=== PATIENT | male | born 1970 | race Caucasian/White ===

== ENCOUNTER 2024-09-17 15:44 | Inpatient (IN) | payer MEDICARE, OTHER ==
[~2024-09-17] VITALS: Ht 177.8 cm; Wt 40.8 kg
[2024-09-17 16:11] LABS: BASOPHILS ABSOLUTE AUTO 0.03 K/mm3 (0.00-0.23); BASOPHILS PERCENT AUTO 0 % (0-2); EOSINOPHILS ABSOLUTE AUTO 0.08 K/mm3 (0.00-0.68); EOSINOPHILS PERCENT AUTO 1 % (0-6); Hematocrit 44.6 % (37.0-53.0); Hemoglobin 14.7 g/dL (13.5-17.5); IMMATURE GRAN ABSOLUTE AUTO 0.01 K/mm3 (0.00-0.10); IMMATURE GRAN PERCENT AUTO 0 % (0-1); LYMPHOCYTES ABSOLUTE AUTO 2.43 K/mm3 (0.84-5.20); LYMPHOCYTES PERCENT AUTO 34 % (21-46); MONOCYTES PERCENT AUTO 7 % (4-13); Mean Corpuscular HGB 31.4 pg (26.0-34.0); Mean Corpuscular Volume 95 fL (80-100); Mean Platelet Volume 10.8 fL (9.1-12.4); NEUTROPHILS ABSOLUTE AUTO 4.21 K/mm3 (1.96-9.15); NEUTROPHILS PERCENT AUTO 58 % (41-73); Platelet Count 320 K/mm3 (150-400); RDW Coefficient Variation 13.6 % (11.7-14.2); RDW Standard Deviation 47.8 fL (35.1-46.3); Red Blood Cell Count 4.68 M/mm3 (4.30-5.90); White Blood Cell Count 7.26 K/mm3 (4.00-11.30)
[2024-09-17 16:32] LABS: Alanine Aminotransfer (ALT/SGP 35 U/L (12-78); Albumin, Blood 3.8 g/dL (3.4-5.0); Albumin/Globulin Ratio 1.2 (0.8-1.8); Alk Phos 82 U/L (50-136); Anion Gap 9 mmol/L (3-11); Aspartate Aminotrans (AST/SGOT 35 U/L (12-37); Bilirubin, Total 0.4 mg/dL (0.1-1.0); Blood Urea Nitrogen 14 mg/dL (8-24); Bun/Creatinine Ratio 13.7 (12.0-20.0); CO2, Blood 27 mmol/L (21-32); Calcium, Blood 9.4 mg/dL (8.5-10.1); Chloride, Blood 110 mmol/L (98-108); Creatinine, Blood 1.02 mg/dL (0.60-1.20); Ethanol (Alcohol), Blood, Med <3 mg/dL; Globulin, Blood 3.2 g/dL (2.2-4.0); Glomerular Filtration Rate 87 (60-); Glucose, Blood 95 mg/dL (70-99); Sodium, Blood 142 mmol/L (136-145)
[2024-09-17 17:23] LABS: U Amphetamine Screen Not Detected; U Barbituate Screen DETECTED; U Benzodiazapine Screen Not Detected; U Cocaine Screen Not Detected; U Methadone Screen Not Detected; U Methamphetamine Screen Not Detected; U Opiates Screen DETECTED
[2024-09-17 17:24] LABS: U Buprenorphine Screen Not Detected; U Cannabinoids Screen DETECTED; U Oxycodone Screen Not Detected; U Phencyclidine Screen Not Detected
[2024-09-17] MEDS ORDERED: Neurontin800 MG PO (19:29)
[2024-09-17] MEDS ORDERED: LISINOPRIL-HCT1 EACH PO (19:30)
[2024-09-17] MEDS ORDERED: AMLODIPINE BESYL5 MG PO (19:31)
[2024-09-17] MEDS ORDERED: CATAPRES0.1 MG PO (19:31)
[2024-09-17] MEDS ORDERED: LORA10ER PO (19:31)
[2024-09-17] MEDS ORDERED: Zofran4 MG PO (19:32)
[2024-09-17] MEDS ORDERED: PANTOPRAZOLE SO40 M2 PO (19:32)
[2024-09-17] MEDS ORDERED: LEVE500 PO (19:33)
[2024-09-17] MEDS ORDERED: PRAZOSIN HCL1 M2 PO (19:33)
[2024-09-17] MEDS ORDERED: TOPI100 PO (19:33)
[2024-09-17] MEDS ORDERED: HYDROCODONE-AC1 EAC7 PO (19:34)
[2024-09-17] MEDS ORDERED: MONT10T PO (19:34)
[2024-09-17] MEDS ORDERED: ALBU90OI INH (19:35)
[2024-09-17] MEDS ORDERED: LevETIRAcetam 500 MG Tab PO ONE (20:50)
[2024-09-17 21:26] LABS: Acetaminophen, Random 2.7 ug/mL (10.0-30.0); Salicylate <1.7 mg/dL (2.8-20.0)
[2024-09-17 21:42] LABS: Source, Urine Clean Catch
[2024-09-17 21:45] LABS: Bilirubin, Urine Neg (Neg); Blood, Urine Neg (Neg); Glucose Qualitative, Urine Neg (Neg); Ketones, Urine Neg (Neg); Leukocyte Esterase, Urine Neg (Neg); Nitrite, Urine Neg (Neg); Protein, Urine Neg (Neg); Specific Gravity, Urine 1.005 (1.003-1.022); Urobilinogen, Urine NORM (Normal)
[2024-09-17] MEDS ORDERED: Nicotine 21 MG PATCH TOP ONE (21:50)
[2024-09-17 22:18] LABS: Appearance, Urine Clear (Clear); Color, Urine Pale Yellow (P-Yellow)
[2024-09-17] MEDS ORDERED: CloNIDine 0.1 MG Tab PO SCH (22:30)
[2024-09-17] MEDS ORDERED: Topiramate 100 MG Tab PO SCH (22:35)
[2024-09-17] MEDS ORDERED: HYDROcodone 10-APAP 325 TAB PO PRN (22:35)
[2024-09-17] MEDS ORDERED: Prazosin HCl 1 MG Cap PO SCH (22:35)
[2024-09-17] MEDS ORDERED: Gabapentin 300 MG Cap PO SCH (22:35)
[2024-09-17] MEDS ORDERED: Gabapentin 400 MG Cap PO PRN (23:25)
[2024-09-17] MEDS ORDERED: Gabapentin 400 MG Cap PO SCH (23:58)
[2024-09-18] MEDS ORDERED: Pantoprazole Sodium 40 MG Tab PO SCH (06:00)
[2024-09-18] MEDS ORDERED: AmLODIPine Besylate 5 MG Tab PO SCH (09:00)
[2024-09-18] MEDS ORDERED: Loratadine 10 MG Tab PO SCH (09:00)
[2024-09-18] MEDS ORDERED: LevETIRAcetam 500 MG Tab PO SCH (12:45)
[2024-09-19] MEDS ORDERED: HYDCHL25 PO (12:24)
[2024-09-19] MEDS ORDERED: LISI20 PO (12:25)
[2024-09-19] MEDS ORDERED: BACL10 PO (12:28)
[2024-09-19] MEDS ORDERED: Flonase 0.05% N16 GM (12:29)
[2024-09-19] MEDS ORDERED: TAMS.4ER PO (12:32)
== END 2024-09-18 14:55 | disposition other institution (70) | DRG 918 ==
LOC: ER 15:44 → EOR 22:09
PROVIDERS: Emergency Medicine; ADMIT Emergency Medicine
DX: T46.4X2A Poisoning by angiotensin-converting-enzyme inhibitors, intentional self-harm, initial encounter (principal); Z59.00 Homelessness unspecified; F43.10 Post-traumatic stress disorder, unspecified; F32.A Depression, unspecified; I10 Essential (primary) hypertension; F12.10 Cannabis abuse, uncomplicated; F11.10 Opioid abuse, uncomplicated; G40.909 Epilepsy, unspecified, not intractable, without status epilepticus; F17.220 Nicotine dependence, chewing tobacco, uncomplicated; F13.10 Sedative, hypnotic or anxiolytic abuse, uncomplicated; Z91.018 Allergy to other foods; Z79.811 Long term (current) use of aromatase inhibitors; Z79.899 Other long term (current) drug therapy; Z91.410 Personal history of adult physical and sexual abuse; Z98.890 Other specified postprocedural states; Z90.49 Acquired absence of other specified parts of digestive tract; Z91.09 Other allergy status, other than to drugs and biological substances; Z79.891 Long term (current) use of opiate analgesic
CPT/HCPCS: 80053; 80320; 81003; 84132; 85025; 93005; 93010; 99285-25; A9270; G0378; G0480

== ENCOUNTER 2024-09-18 10:31 | Inpatient (IN) | payer MEDICARE, OTHER ==
[~2024-09-18] VITALS: Wt 74.6 kg
[~2024-09-18 10:31] MED LIST: ALBU90OI INH; AMLODIPINE BESYL5 MG PO; CATAPRES0.1 MG PO; HYDROCODONE-AC1 EAC7 PO; LEVE500 PO; LISINOPRIL-HCT1 EACH PO; LORA10ER PO; MONT10T PO; Neurontin800 MG PO; PANTOPRAZOLE SO40 M2 PO; PRAZOSIN HCL1 M2 PO; TOPI100 PO; Zofran4 MG PO
[2024-09-18] MEDS ORDERED: LORazepam 2 MG Tab PO PRN (12:45)
[2024-09-18] MEDS ORDERED: Ibuprofen 600 MG Tab PO PRN (12:45)
[2024-09-18] MEDS ORDERED: HydrOXYzine Pamoate 50 MG Cap PO PRN (12:50)
[2024-09-18] MEDS ORDERED: Haloperidol Lactate Inj. 5 MG/ML Injection IM PRN (12:50)
[2024-09-18] MEDS ORDERED: FLU VACC TS2024-25(6MOS UP)/PF 45 MCG/0.5 ML SYRINGE IM SCH (12:50)
[2024-09-18] MEDS ORDERED: DiphenhydrAMINE HCl 50 MG Cap PO PRN (12:50)
[2024-09-18] MEDS ORDERED: Haloperidol 5 MG Tab PO PRN (12:50)
[2024-09-18] MEDS ORDERED: DiphenhydrAMINE HCl 50 MG/ML 1ML Vial IV PRN (12:50)
[2024-09-18] MEDS ORDERED: Aluminum Hydroxide 320MG/5ML 473 ML PO PRN (12:55)
[2024-09-18] MEDS ORDERED: OLANZapine ODT 10 MG Tab MM PRN (12:55)
[2024-09-18] MEDS ORDERED: TraZODone HCl 50 MG Tab PO PRN (12:55)
[2024-09-18] MEDS ORDERED: Ondansetron 4 MG SoluTab MM PRN (12:55)
[2024-09-18] MEDS ORDERED: Melatonin 3 MG Tab PO PRN (12:55)
[2024-09-18] MEDS ORDERED: Polyethylene Glycol 3350 17 gm PO PRN (12:55)
[2024-09-18] MEDS ORDERED: Acetaminophen 325 MG TABLET PO PRN (12:55)
[2024-09-18] MEDS ORDERED: Calcium Carbonate 500 MG Tab Chew PO PRN (12:55)
[2024-09-18] MEDS ORDERED: LORazepam 2 MG/ML 1ML Injection IM PRN (13:00)
[2024-09-18] MEDS ORDERED: Sertraline HCl 50 MG Tab PO SCH (13:00)
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
[2024-09-18 15:27] VITALS: BP 104/78
[2024-09-18 16:00] VITALS: BP 104/78
[2024-09-18 21:00] VITALS: BP 135/99
[2024-09-18] MEDS ORDERED: Nicotine Polacrilex 2 MG Gum PO PRN (21:00)
[2024-09-18] MEDS ORDERED: LevETIRAcetam 500 MG Tab PO SCH (21:00)
--- NOTE | 2024-09-19 04:23 | NUR ---
PATIENT WAS NEW TO UNIT AT BEGINNING OF SHIFT. HE WAS ORIENTED TO THE UNIT AND SAT IN THE GROUP ROOM, INTERACTING WITH STAFF AND PEERS APPROPRIATELY. HE JOINED THE GROUP FOR SNACK TIME IN THE DINING ROOM, WELL FOLLOW UP. HE WAS PLEASANT AND COOPERATIVE, INCLUDING WITH EVENING MEDICATIONS. HOSPITALIST CALLED AND WANTS A MEDICATION CONSULT IN THE MORNING. TOPAMAX 100MG PO BID SEIZURE PREVENTION WAS ORDERED, ORDER SENT TO PHARMACY. PATIENT ALSO TAKES KEPPRA FOR SEIZURE PREVENTION. HE WENT TO BED AFTER WATCHING A MOVIE WITH STAFF AND PEERS AND WAS NOTED TO BE RESTING QUIETLY WITH EYES CLOSED AND RESPIRATIONS CONFIRMED. HE HAD NO S/SX SUICIDAL IDEATION OR SELF HARM. HE STATED, "I WISH I HADN'T TRIED IT. I DON'T WANT TO TRY IT AGAIN." HE WAS REFERRING TO HIS OVERDOSE OF MEDICATION IN A RECENT SUICIDE ATTEMPT. CONTINUING TO MONITOR FOR SAFETY WITH Q15 MINUTE CHECKS.
[2024-09-19 07:59] VITALS: BP 119/92
[2024-09-19] MEDS ORDERED: Multivitamins 1 Tab PO SCH (09:00)
[2024-09-19] MEDS ORDERED: Topiramate 100 MG Tab PO SCH (09:00)
[2024-09-19] MEDS ORDERED: HYDCHL25 PO (12:24)
[2024-09-19] MEDS ORDERED: LISI20 PO (12:25)
[2024-09-19] MEDS ORDERED: BACL10 PO (12:28)
[2024-09-19] MEDS ORDERED: Flonase 0.05% N16 GM (12:29)
[2024-09-19] MEDS ORDERED: TAMS.4ER PO (12:32)
--- NOTE | 2024-09-19 16:36 | NUR ---
SHIFT SUMMARY: PT ALERT, ORIENTED AND COOPERATIVE WITH CARE. DENIES SI, HI AND AVH. PT PRESENT IN THE UNIT, ACTIVE IN MILIEU. PT PARTICIPATED IN GROUPS AND MEALS. SPENT TIME WITH PREDATORY ANIMAL TRAPPER AND MET WITH THE HOSPITALIST FOR MED MANAGMENT.
[2024-09-19 21:52] VITALS: BP 132/40
--- NOTE | 2024-09-20 00:16 | NUR ---
SHIFT SUMMARY Visible in tv room watching football with peers throughout the evening. Briefly irritated with peer when they started a political debate, but both were easily redirected by a staff member before the conversation escalated. Pleasant interactions with peers and staff for the remainder of evening. PRN ibuprofen for back pain (/) was reported to be effective. PRN nicotine gum x2. No other PRN requests. Compliant with HS meds. No SI/HI/AVH reported.
[2024-09-20 08:10] VITALS: BP 147/97
[2024-09-20 08:11] VITALS: BP 147/97
[2024-09-20] MEDS ORDERED: Pantoprazole Sodium 40 MG Tab PO SCH (09:00)
[2024-09-20] MEDS ORDERED: Fluticasone 0.05% Nasal Spray SCH (09:00)
[2024-09-20] MEDS ORDERED: Montelukast Sodium 10 MG Tab PO SCH (09:00)
[2024-09-20] MEDS ORDERED: Albuterol HFA200 ACT/6.7 GM INH INH SCH (09:00)
[2024-09-20] MEDS ORDERED: Sertraline HCl 100 MG Tab PO SCH (09:00)
[2024-09-20] MEDS ORDERED: Loratadine 10 MG Tab PO SCH (09:00)
[2024-09-20] MEDS ORDERED: Tamsulosin HCl 0.4 MG Cap PO SCH (09:00)
[2024-09-20] MEDS ORDERED: AmLODIPine Besylate 5 MG Tab PO SCH ×2 (09:00→21:00)
--- NOTE | 2024-09-20 17:27 | NUR ---
SHIFT SUMMARY: PT ALERT, ORIENTED AND COOPERATIVE. COMPLIANT WITH MEDICATIONS. PT DENIES SI, HI AND AVH. PT STATES THAT HE FEELS LIKE HE IS READY TO DISCHARGE. STATES THAT HE IS NOW PLANNING ON STAYING IN [place] INSTEAD OF GOING TO HIS PARENTS. PT STATES THAT HE IS AGREEABLE TO GOING [place] [facility] WHEN [facility] DISCHAR[place]ES. PT SPOKE WITH THE PROVIDER AND HAVE TENTATIVE PLAN TO DISCHARGE ON SUNDAY AFTER FOLLOW UP APPOINTMENTS CAN BE MADE.
--- NOTE | 2024-09-21 06:12 | NUR ---
SHIFT SUMMARY Pt remains pleasant and appropriate during interactions. Socializing with peers and watching football in the evening. PRN nicotine gum given. New HS med (amlodipine), discussed with pt. Denies new concerns. Active participation in tx. Possible DC plan Sunday.
[2024-09-21 08:04] VITALS: BP 142/94
[2024-09-21] MEDS ORDERED: Sertraline HCl 100 MG Tab PO SCH (09:00)
--- NOTE | 2024-09-21 17:42 | NUR ---
SHIFT SUMMARY: PT ALERT, ORIENTED AND COOPERATIVE WITH CARE. DENIES SI, HI AND AVH. STATES THAT HE STILL FEELS OK WITH DISCHARGING PLANNED ON SUNDAY. PT ENGAGED IN UNIT MILIEU, WATCHING TV, TALKING WITH PEERS AND STAFF.
[2024-09-21] MEDS ORDERED: AmLODIPine Besylate 5 MG Tab PO SCH (21:00)
[2024-09-21 21:14] VITALS: BP 148/96
--- NOTE | 2024-09-22 04:20 | NUR ---
SHIFT SUMMARY Denies new needs/concerns or issues with mood. Amlodipine dose increased to 5 mg at HS. Pt reports that he does normally take meds to manage his HTN. Zofran PRN requested/given, with some relief. PRN nicotine gum. Sitting in tv room with peers. Socializes with male peers appropriately. Observed to be sleeping overnight without issue.
[2024-09-22 07:45] VITALS: BP 140/95
--- NOTE | 2024-09-22 09:53 | NUR ---
Pt Discharge Appointment Pt has a discharge appointment scheduled with Ricarda York at [facility] at 11am. Provider will put in a referral to Behavioral Health for patient at this appointment. DC Summary needs to be Faxed over upon Discharge to ensure clinic has all updated information.
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
[2024-09-22 20:36] VITALS: BP 127/89
[2024-09-22] MEDS ORDERED: AmLODIPine Besylate 5 MG Tab PO SCH (21:00)
--- NOTE | 2024-09-23 05:47 | NUR ---
SHIFT SUMMARY Pt is A&O, calm, cooperative, eye contact is good. Pt stated that his mood was "A-ok;" affect is euthymic and full. Pt denies SI, HI, and hallucinations. He denies current pain. Pt received PRN nicotine gum at 193. He c/o nausea and received PRN ondansetron with his HS meds at 2024. Pt was active on the milieu during the evening, watching TV with peers and staff. Staff continues to moniotor for safety and wellness.
[2024-09-23 08:15] VITALS: BP 123/81
--- NOTE | 2024-09-23 08:29 | NUR ---
AM ASSESSMENT PT PLEASANT AND COOPERATIVE THIS MORNING. UP TO DINING ROOM FOR BREAKFAST, SMILING AND INTERACTING WITH PEERS AND STAFF. PT DENIES ANY SI/HI OR AVH AT THIS TIME. MORNING CHECK IN PT REPORTS FEELING THANKFUL FOR LIFE AND HAPPY. PT REPORTS HOPING TO ACCOMPLISH EXTRA WALKING AND TALKING WITH PEERS/ STAFF. PT DENIES ANY CONCERNS AT THIS TIME. WILL CONTINUE TO MONITOR AND PROVIDE SUPPORT NECESSARY.
--- NOTE | 2024-09-23 19:15 | NUR ---
SHIFT SUMMARY PT DOING WELL THIS SHIFT, PT DENIES ANY CONCERNS OF SI/HI OR AVH. PT CONTINUES TO SMILE AND GIVE THUMBS UP WHEN ASKED HOW HE IS FEELING. PT PLANS FOR DISCHARGE TOMORROW TO [facility]. NO ACUTE CHANGES THIS SHIFT. WILL CONTINUE TO MONITOR AND PROVIDE SUPPORT NECESSARY.
[2024-09-23 20:39] VITALS: BP 128/90
--- NOTE | 2024-09-24 04:24 | NUR ---
SHIFT SUMMARY No significant changes noted or reported. Remains active in tx and social on unit with peers. Appropriate behavior. Cooperative with meds. PRN nicotine gum given per pt request. Denies other needs. Disruptions in sleep d/t new roommate's activity throughout the night. No other issues overnight.
[2024-09-24 07:19] VITALS: BP 128/91
[2024-09-24] MEDS ORDERED: MELA3 PO (08:50)
[2024-09-24] MEDS ORDERED: ONE DAILY ESS400 MCG PO (08:51)
[2024-09-24] MEDS ORDERED: SERT100 PO (08:51)
--- NOTE | 2024-09-24 09:14 | NUR ---
AM ASSESSMENT PT REPORTS FEELING GOOD THIS MORNING. PT PLEASANT AND COOPERATIVE WITH CARE AND ENGAGING WITH PEERS AND STAFF. PT UP TO BREAKFAST AND SHOWERING FOR PLANNED DISCHARGE. PT PLANS TO WALK TO F/U [facility] W/ [facility] AND RETURN FOR BELONGINGS AND TRANSPORTATION TO [place].
--- NOTE | 2024-09-24 10:30 | NUR ---
DISCHARGE PT DISCHARGED TO F/U APPT. PT PROVIDED WITH DISCHARGE INFORMATION AND EDUCATION. PT INFORMED OF RX SENT TO [place] AND CONFIRMED RECEIPT. PT BELONGINGS RETURNED TO PT AND HELD IN [facility] TILL PT RETURN AND TRANSPORT PROVIDED. PT ESCORTED TO [facility] AND SHOWN DIRECTION OF APPT.
== END 2024-09-24 10:30 | disposition home or self-care (01) | DRG 918 ==
LOC: BHU 10:31
PROVIDERS: ADMIT Student in an Organized Health Care Education/Training Program
DX: T46.4X2A Poisoning by angiotensin-converting-enzyme inhibitors, intentional self-harm, initial encounter (principal); F31.9 Bipolar disorder, unspecified; F43.12 Post-traumatic stress disorder, chronic; I10 Essential (primary) hypertension; G40.909 Epilepsy, unspecified, not intractable, without status epilepticus; F17.220 Nicotine dependence, chewing tobacco, uncomplicated; J30.2 Other seasonal allergic rhinitis; Z87.81 Personal history of (healed) traumatic fracture; Z90.49 Acquired absence of other specified parts of digestive tract; Z88.8 Allergy status to other drugs, medicaments and biological substances; Z91.018 Allergy to other foods; Z91.048 Other nonmedicinal substance allergy status; Z79.899 Other long term (current) drug therapy; Z56.0 Unemployment, unspecified
CPT/HCPCS: A9270